=== PATIENT | male | born 1935 | race Caucasian/White ===

== ENCOUNTER 2018-02-22 22:16 | Emergency (ER) | payer MEDICARE ==
[2018-02-22] MEDS: OXYMETAZOLINE HCL 0.05% NASAL SPRAY NS ONE ×2 (22:35→23:15)
[2018-02-22] MEDS: CloNIDine HCL 0.1 MG TABLET PO ONE (23:00)
[2018-02-22] MEDS: Lidocaine 2% 20ml Vial IP ONE (23:04)
--- NOTE | 2018-02-23 00:24 | ED Physician Documentation ---
Fall - HPI Stated Complaint: nose bleed/ laceration Chief Complaint: Fall Additional Information: fell down hill, no loc Onset: just prior to arrival Where: home Context: lost balance r: moderate Associated Symptoms:: no loss of consciousness Location of Pain/Injury: face Injury to Right Extremity: none Injury to Left Extremity: none Further Comments: no - ROS CONST: no problems NEURO: denies: dizziness, anxiety, depression MS/SKIN/LYMPH: rash. denies: weakness, numbness, neck pain, back pain, ankle swelling, leg swelling EYES/ENT: none CVS/RESP: none GI/: denies: problems urinating, nausea, vomiting - PAST HX Past History: other (cva, htn, hyperlipidemia) Immunizations: UTD Allergies/Adverse Reactions: Allergies Allergy/AdvReac Type Severity Reaction Status Date / Time No Known Allergies Allergy Verified 02/22/18 22:22 Home Medications: Ambulatory Orders Medication Instructions Recorded Aspirin 81 mg PO D 02/22/18 Clopidogrel Bisulfate [Clopidogrel] 75 mg PO D 02/22/18 Losartan Potassium [Cozaar] 50 mg PO D 02/22/18 Metoprolol Tartrate [Lopressor] 25 mg PO D 02/22/18 - SOCIAL HX Smoking History: non-smoker Alcohol Use: none Drug Use: none - FAMILY HX Family History: no significant history - VITAL SIGNS Vital Signs: Vital Signs Temp Pulse Resp BP Pulse Ox 98.1 F 94 H 18 215/110 97 02/22/18 22:16 02/22/18 22:16 02/22/18 22:16 02/22/18 22:16 02/22/18 22:16 - REVIEWED ASSESSMENTS Nursing Assessment Reviewed: Yes Vitals Reviewed: Yes Procedures Wound Location: face (bridge of nose - 3 cm horizontal laceration) Wound Length: 3 cm Wound's Depth, Shape: into muscle, linear Wound Explored: no foreign body removed Betadine Prep?: No (Sure Clens prep) Anesthesia: 2% Lidocaine Volume of Anesthetic: 8 cc Wound Debrided: none Wound Repaired With: sutures Suture Size/Type: 5:0, nylon Number of Sutures: 5 Sterile Dressing Applied?: No Splint Applied?: No Sling Applied?: No Progress - Results/Orders Results/Orders: no testing ordered - Progress Progress: Pt. stable entire time in er. Afrin and pressure used successfully for epistaxis. Lacedration repaired successfully - see procedure note. Critical Care Note - Critical Care Note Total Time (mins): 30 ED Results Lab/Radiology - Lab Results Lab Results: no labs ordered - Radiology Radiology Impressions: no radiographs ordered - Orders Orders: ED Orders Category Date Time Status CloNIDine HCL [Catapress] Med 02/22/18 22:52 Discontinued 0.1 mg PO NOW ONE Lidocaine 2% 20ml Vial [Xylocaine] Med 02/22/18 22:53 Discontinued 20 mg IP NOW ONE Oxymetazoline HCl [Afrin 0.05%] Med 02/22/18 22:34 Discontinued 1 spray NS NOW ONE Oxymetazoline HCl [Afrin 0.05%] Med 02/22/18 22:33 Discontinued 30 spray NS .STK-MED ONE Fall Physical Exam - Physical Exam General Appearance: alert, moderate distress Head: trauma (abraison to left frontal area of face, nose. Laceration to bridge of nose). No: raccoon eyes, Schmidt's sign Neck: non-tender, painless ROM, trachea midline Eye: JENNIFER, EOMI, lids & conjunct. nml ENT: nml external inspection, no dental injury, no oral injury, airway nml Resp/CVS: chest non-tender, no ecchymosis, breath sounds nml, no resp. distress , heart sounds nml Abdomen: soft, no organomegaly, normal bowel sounds, no abdominal bruit, no distension, non-tender Neuro: oriented x3, CN's nml as tested, sensation nml, motor nml Skin: color nml, no rash, other (abrasions and laceration as noted) Back: normal inspection, no CVA tenderness, no vertebral tenderness Extremities: other (chronic left sided weakness rom previous cva) Joint: joints nml. No: ligamentous instability - Bisi Coma Score Eyes Open: Spontaneous Speech: Oriented Motor: Obeys Commands (15) Discharge Clincal Impression: Laceration, Epistaxis Referrals: Primary Doctor,No [Primary Care Provider] - 2 Days Comments: Pt. discharged home to care of his with suture care instructions. Condition: Stable Disposition: 01 HOME, SELF-CARE Decision to Admit: NO Decision Time: 00:19
[2018-02-23 01:24] VITALS: BP 162/78
== END 2018-02-23 00:23 | disposition home or self-care (01) ==
LOC: ED 22:16
DX: S01.21XA Laceration without foreign body of nose, initial encounter (principal); R04.0 Epistaxis; W19.XXXA Unspecified fall, initial encounter; Y92.9 Unspecified place or not applicable
CPT/HCPCS: 12013; 96372